=== PATIENT | female | born 1990 | race Caucasian/White ===

== ENCOUNTER 2019-09-01 16:57 | Day surgery (SDC) | payer BC ==
[2019-09-01 17:47] VITALS: BMI 38.4
[2019-09-01 17:54] VITALS: BP 128/78; TEMP 98.8
[2019-09-01] MEDS ORDERED: hydrALAZINE 20 MG/ML VIAL SLOW IVP PRN (18:48)
--- NOTE | 2019-09-01 19:36 | PRG ---
DATE OF SERVICE: 09/01/2019 PRIMARY OB: James Fenton DO, MS CHIEF COMPLAINT: Elevated blood pressures. HISTORY OF PRESENT ILLNESS: The patient is a 29-year-old, G1, P0 female with an intrauterine at 37 weeks and 2 days, presenting from the clinic today with reports of an elevated blood pressures in the office of 140s over 90s. The patient does not have a history of elevated pressures prior to this. She does attribute her elevated pressure to a stressful event occurring prior to her visit. She denies headache. She denies chest pain or shortness of breath. She denies nausea, vomiting, diarrhea, or constipation. She denies any abdominal pains. She denies specifically a right upper quadrant pain. She denies any new rashes, hip problems, knee problems, muscle weakness. She denies vaginal bleeding, leakage of fluid, urinary urgency or frequency. PAST MEDICAL HISTORY: She has a history of heat exhaustion many years ago. PAST SURGICAL HISTORY: Negative. ALLERGIES: NO KNOWN DRUG ALLERGIES. MEDICATIONS: 1. vitamins. 2. Iron. SOCIAL HISTORY: Denies drug, alcohol, or tobacco use. OB LABS: Blood type is A positive. Antibody screen is negative. VDRL is nonreactive in the first trimester. Hepatitis B surface antigen is nonreactive in the first trimester. HIV is nonreactive in the first trimester. GC chlamydia negative. HIV is nonreactive in the third trimester. She is rubella immune. VDRL is nonreactive in the third trimester. She is GBS negative. REVIEW OF SYSTEMS: Per HPI. PHYSICAL EXAMINATION: VITAL SIGNS: On arrival, blood pressure 128/82 initially, respiratory rate 18, pulse 70s to 80s, saturating 97% on room air, and temperature 98.8. GENERAL: She appears to be in no acute distress. She is alert, oriented, cooperative, and pleasant to interact with. HEENT: Head is normocephalic and atraumatic. LUNGS: Clear to auscultation bilaterally. HEART: Has regular rate and rhythm. ABDOMEN: Gravid, soft, nontender. She has negative Collazo sign. No visible rashes. No CVA tenderness. No paravertebral tenderness. Minimal SI joint tenderness. EXTREMITIES: Nontender and nonedematous. There are no DTRs to be appreciated. heart tracing shows a baseline in 140s with moderate long-term variability. Positive accelerations. No decelerations. Tocometer is quiet without any signs of contractions. Blood pressures over newly last hour and over the last hour have been in the normal range from the one teens to 132 over 70s to 80s. The patient has no evidence of preeclampsia by symptoms and no elevated blood pressures. The patient and fetus have a category 1 tracing and reactive NST. The patient will be discharged to home with reassurance and can follow up with Dr. Fenton as scheduled. Job ID: [id number]
== END 2019-09-01 19:26 | disposition home or self-care (01) ==
LOC: L&D/OP 16:57
PROVIDERS: ATTEND Obstetrics & Gynecology
DX: O99.89 Other specified diseases and conditions complicating pregnancy, childbirth and the puerperium (principal); R03.0 Elevated blood-pressure reading, without diagnosis of hypertension; Z3A.37 37 weeks gestation of pregnancy; Z79.899 Other long term (current) drug therapy
CPT/HCPCS: 87081; 99281

== ENCOUNTER 2019-09-23 19:30 | Inpatient (IN) | payer BC ==
[~2019-09-23 19:30] MED LIST: Bupivacaine/Epinephrine 0.25% 30 ML VIAL ONE
[2019-09-23] MEDS ORDERED: Lidocaine 1% (PF) 30 ML VIAL SC PRN (22:41)
[2019-09-23] MEDS ORDERED: HYDROcodone/Acetaminophen 5/325 mg Tablet PO PRN (22:41)
[2019-09-23] MEDS ORDERED: NS w/ Oxytocin 10 units 500 ML IV SCH ×2 (22:41)
[2019-09-23] MEDS ORDERED: hydrALAZINE 20 MG/ML VIAL SLOW IVP PRN (22:41)
[2019-09-23] MEDS ORDERED: Ondansetron PF 4 MG/2 ML Vial IVP PRN (22:41)
[2019-09-23] MEDS ORDERED: Butorphanol Tartrate 1 MG/ML VIAL SLOW IVP PRN (22:41)
[2019-09-23] MEDS ORDERED: Ibuprofen 800 MG TAB PO PRN (22:41)
[2019-09-23] MEDS ORDERED: Promethazine HCl 25 MG/ML VIAL IM PRN (22:41)
[2019-09-23] MEDS ORDERED: Misoprostol 100 MCG TAB VAG SCH (23:00)
[2019-09-23 23:03] VITALS: BMI 39.4
[2019-09-23] MEDS: Lactated Ringer's 1,000 ML IV SCH (23:31)
[2019-09-23 23:54] LABS: Hemoglobin 11.9 g/dL (12.0-16.0); Mean Corpuscular Hemoglobin 31.5 pg (27.0-31.0); Mean Corpuscular Volume 89.9 fL (78.0-98.0); Platelet Count 242 thou/uL (130-400); Red Blood Cell (RBC) Count 3.78 mill/uL (4.20-5.40); White Blood Cell (WBC) Count 10.1 thou/uL (4.8-10.8)
[2019-09-24 00:30] LABS: Syphilis Antibody Nonreactive (Nonreactive); Syphilis Antibody Index 0.04 S/CO (<1.00 Non-Reactive)
[2019-09-24] MEDS ORDERED: Fentanyl 4 mcg/Bup 0.1% Cadd 100 ML ONE (00:45)
[2019-09-24 02:03] LABS: HBSAg Index 0.12 S/CO (0-0.99); Hep B Surf Ag Non-Reactive S/CO (NonReactive)
--- NOTE | 2019-09-24 08:33 | PDOC.LDHP ---
Labor and Delivery H&P Chief complaint: scheduled induction HPI: Here for scheduled IOL 40+ weeks. Current gestational age (weeks): 40 Due date: 09/20/19 Grav: 1 Current complications: none Abnormal US findings: No Current medications: pre-wes vitamins Previous surgical history: none Allergies/Adverse Reactions: Allergies Allergy/AdvReac Type Severity Reaction Status Date / Time No Known Drug Allergies Allergy Verified 09/23/19 23:04 Social history: none - Physical Exam Vital signs reviewed and normal: yes General: NAD Heart: RRR Lungs: nonlabored breathing Abdomen: gravid Extremeties: no edema FHT: category 1 [place] contractions every: 2 - Vaginal Exam cm dilated: 4 (arom clear fluid on admit exam) Effacement: 75% Station: -2 - OB Labs Blood type: A RH: positive Antibody Screen: negative HIV: negative RPR: negative HEPSAg: negative 1 hour GCT: positive 3 hour GTT: WNL GBS: negative Urine drug screen: negative Rubella: immune - Assessment L&D Assessment: medically indicated induction (prolonged 40 weeks) - Plan Plan: admit to L&D, labor augmentation if indicated, informed consent obtained, anesthesia consult for pain management
[2019-09-24] MEDS: Lactated Ringer's 1,000 ML IV SCH ×2 (10:08→16:57)
[2019-09-24] MEDS: NS / Oxytocin 40 units/1000ml 1,000 ML IV PRN ×2 (15:31→17:49)
--- NOTE | 2019-09-24 15:52 | PDOC.OPDEL ---
OB Operative/Delivery Note Delivery Dr/Surgeon: KASSIE Pre-Delivery Diagnosis: elective induction (40 WEEKS) Procedure/Post Delivery Dx: spontaneous vaginal delivery Weeks gestation: 40 Anesthesia: epidural - Findings A Sex: female - Additional Findings/Plan Placenta delivered: spontaneous Repaired Obstetrical Laceration: 2nd degree Estimated blood loss: 250ML Compilations/Other Findings: NONE Post delivery plan: routine recovery
[2019-09-24] MEDS ORDERED: hydrALAZINE 20 MG/ML VIAL SLOW IVP PRN (16:24)
[2019-09-24] MEDS ORDERED: Bisacodyl 10 MG SUPP PR PRN (16:24)
[2019-09-24] MEDS ORDERED: Ondansetron PF 4 MG/2 ML Vial IVP PRN (16:24)
[2019-09-24] MEDS ORDERED: Preparation H Ointment 28 GM TUBE PR PRN (16:24)
[2019-09-24] MEDS ORDERED: Benzocaine-Menthol 82.5 ML CAN TOP PRN (16:24)
[2019-09-24] MEDS ORDERED: diphenhydrAMINE 25 MG CAP PO PRN (16:24)
[2019-09-24] MEDS ORDERED: Lanolin Ointment 7 GM TUBE TOP PRN (16:24)
[2019-09-24] MEDS ORDERED: Milk Of Magnesia 30 ML UDCUP PO PRN (16:24)
[2019-09-24] MEDS ORDERED: NS / Oxytocin 40 units/1000ml 1,000 ML IV SCH (16:24)
[2019-09-24] MEDS ORDERED: HYDROcodone/Acetaminophen 5/325 mg Tablet PO PRN ×2 (16:24)
[2019-09-24] MEDS ORDERED: NS / Oxytocin 40 units/1000ml 1,000 ML ONE (17:43)
[2019-09-24] MEDS: Ferrous Sulfate 325 MG TAB PO SCH (22:28)
[2019-09-24] MEDS: Ibuprofen 800 MG TAB PO SCH (22:29)
[2019-09-24] MEDS: Docusate Calcium (SURFAK) 240 MG CAP PO SCH (22:29)
[2019-09-25] MEDS: Ibuprofen 800 MG TAB PO SCH ×2 (07:18→13:01)
[2019-09-25] MEDS: Docusate Calcium (SURFAK) 240 MG CAP PO SCH (07:18)
[2019-09-25] MEDS: Ferrous Sulfate 325 MG TAB PO SCH ×2 (07:18→13:05)
[2019-09-25] MEDS ORDERED: Adacel (T-DAP) 0.5 ML SYRINGE IM ONE (09:00)
[2019-09-25] MEDS ORDERED: Prenatal Vitamin 1 TAB PO SCH (09:00)
[2019-09-25 11:37] VITALS: BP 132/68; TEMP 98
--- NOTE | 2019-09-25 11:44 | PDOC.PP ---
Post Progress Note Post Day #: 1 Subjective: doing well, working on latch, min lochia PO intake tolerated: yes Flatus: yes Ambulation: yes Vital Signs (12 hours) Temp Pulse Resp BP Pulse Ox 09/25/19 11:36 98.0 F 97 20 132/68 95 09/25/19 08:13 97.8 F 84 20 134/83 97 09/25/19 04:50 97.9 F 90 18 134/71 09/25/19 00:48 98.3 F 94 18 137/72 Weight Weight 237 lb - Physical Examination General: NAD Respiratory: non-labored breathing Fundus firm & at: below umb Psychiatric: A&Ox3, normal affect Result Diagrams: 09/23/19 23:43 Additional Labs: Post Labs Blood Type A POSITIVE 09/24/19 00:23 Hep Bs Antigen Non-Reactive S/CO (NonReactive) 09/23/19 23:42 (1) Vaginal delivery Code(s): O80 - ENCOUNTER FOR FULL-TERM UNCOMPLICATED DELIVERY Status: Acute (2) Term Code(s): Z34.90 - ENCNTR FOR SUPRVSN OF NORMAL , UNSP, UNSP TRIMESTER Status: Acute - Assessment/Plan PPD1 doing well SP IOL @ 40+ weeks. Likely DC tomorrow, today if baby discharged by eliecer team.
== END 2019-09-25 19:19 | disposition home or self-care (01) | DRG 807 ==
LOC: L&D 22:23 → 3SW 09-24 18:51
PROVIDERS: ADMIT Obstetrics & Gynecology; ATTEND Obstetrics & Gynecology
PROC: 10E0XZZ Delivery of Products of Conception, External Approach (ICD-10-PCS; principal; 2019-09-24)
PROC: 0KQM0ZZ Repair Perineum Muscle, Open Approach (ICD-10-PCS; 2019-09-24)
PROC: 10907ZC Drainage of Amniotic Fluid, Therapeutic from Products of Conception, Via Natural or Artificial Opening (ICD-10-PCS; 2019-09-24)
PROC: 3E033VJ Introduction of Other Hormone into Peripheral Vein, Percutaneous Approach (ICD-10-PCS; 2019-09-24)
DX: O48.0 Post-term pregnancy (principal); Z37.0 Single live birth; Z3A.40 40 weeks gestation of pregnancy; O70.1 Second degree perineal laceration during delivery
CPT/HCPCS: 36415; 51702; 85027; 86780; 86850; 86900; 86901; 87340; J0360; J2590